=== PATIENT | female | born 1995 | race Two or more races ===

== ENCOUNTER 2018-08-06 20:04 | Inpatient (IN) | payer OTHER ==
[~2018-08-06] VITALS: Ht 157.5 cm; Wt 68.0 kg
[2018-08-06] MEDS ORDERED: PRENATAL TABLE1 EAC1 PO (20:26)
== END 2018-08-09 14:26 | DRG 775 ==
LOC: OB/GYN 20:04 → LDR 20:04 → OB/GYN 08-07 22:20
PROC: 4A1HXCZ Monitoring of Products of Conception, Cardiac Rate, External Approach (ICD-10-PCS; 2018-08-06)
PROC: 10E0XZZ Delivery of Products of Conception, External Approach (ICD-10-PCS; principal; 2018-08-07)
PROC: 0W8NXZZ Division of Female Perineum, External Approach (ICD-10-PCS; 2018-08-07)
PROC: 3E033VJ Introduction of Other Hormone into Peripheral Vein, Percutaneous Approach (ICD-10-PCS; 2018-08-07)
DX: O80 Encounter for full-term uncomplicated delivery (principal); Z3A.39 39 weeks gestation of pregnancy; Z37.0 Single live birth; Z22.330 Carrier of Group B streptococcus

== ENCOUNTER 2023-06-20 15:00 | Outpatient (CLI) | payer OTHER ==
[~2023-06-20 15:00] MED LIST: PRENATAL TABLE1 EAC1 PO
== END 2023-06-20 17:41 | disposition home or self-care (01) ==
LOC: PRENATAL 15:00
PROVIDERS: ATTEND Obstetrics & Gynecology Maternal & Fetal Medicine
DX: O35.9XX0 Maternal care for (suspected) fetal abnormality and damage, unspecified, not applicable or unspecified (principal); O35.3XX0 Maternal care for (suspected) damage to fetus from viral disease in mother, not applicable or unspecified; O44.00 Complete placenta previa NOS or without hemorrhage, unspecified trimester; Z3A.20 20 weeks gestation of pregnancy

== ENCOUNTER 2023-08-16 13:34 | Outpatient (CLI) | payer OTHER | END 2023-08-16 13:49 | disposition home or self-care (01) | LOC: PRENATAL 13:34 | PROVIDERS: ATTEND Obstetrics & Gynecology Maternal & Fetal Medicine | DX: O26.849 Uterine size-date discrepancy, unspecified trimester (principal); O44.00 Complete placenta previa NOS or without hemorrhage, unspecified trimester; O99.280 Endocrine, nutritional and metabolic diseases complicating pregnancy, unspecified trimester; Z3A.28 28 weeks gestation of pregnancy ==

== ENCOUNTER → 2023-09-26 14:24 | Outpatient (CLI) | payer OTHER | END | disposition home or self-care (01) | LOC: PRENATAL 14:24 | PROVIDERS: ATTEND Obstetrics & Gynecology Maternal & Fetal Medicine | DX: O26.849 Uterine size-date discrepancy, unspecified trimester (principal); O36.8199 Decreased fetal movements, unspecified trimester, other fetus; O99.280 Endocrine, nutritional and metabolic diseases complicating pregnancy, unspecified trimester; Z3A.34 34 weeks gestation of pregnancy ==

== ENCOUNTER 2023-10-15 22:22 | Outpatient (CLI) | payer OTHER ==
[2023-10-15] MEDS ORDERED: SYNTHROID75 MCG PO (22:51)
[2023-10-15 23:27] LABS: PH,URINE 6.5 (5.0-8.0); URINE APPEARANCE Cloudy; URINE BILIRRUBIN Negative (NEGATIVE); URINE BLOOD Negative; URINE COLOR Yellow; URINE GLUCOSE Negative (NEGATIVE); URINE LEUKOCYTE Trace; URINE NITRATE Negative; URINE PROTEIN Negative (NEGATIVE)
[2023-10-15 23:28] LABS: URINE BACTERIA 1208.2 uL (0.0-1933); URINE EPITHELIAL CELLS 180.4 uL (0.0-38.8); URINE RBC 3.7 uL (0.0-20.8); URINE WBC 59.6 uL (0.0-23.2)
[2023-10-15 23:35] LABS: HEMATOCRIT 27.4 % (36.0-45.00); HEMOGLOBIN 8.8 g/dL (12.0-15.00); MEAN CELL VOLUME 65.1 fL (80.00-100.00); MEAN CORPUSCULAR HEMOGLOBIN 20.8 pg (27.00-32.0); MEAN CORPUSCULAR HGB CONC 31.9 g/dl (32.0-36.0); PLATELET COUNT 146 K/uL (150-450); RED BLOOD COUNT 4.22 M/uL (4.00-6.00); RED CELL DISTRIBUTION WIDTH 18.6 % (11.5-14.5)
== END 2023-10-16 12:10 | disposition home or self-care (01) ==
LOC: OBS/DEL 22:22
PROVIDERS: ATTEND Obstetrics & Gynecology
DX: O26.893 Other specified pregnancy related conditions, third trimester (principal); R50.9 Fever, unspecified; R52 Pain, unspecified; Z3A.38 38 weeks gestation of pregnancy; Z20.822 Contact with and (suspected) exposure to COVID-19

== ENCOUNTER 2023-10-30 08:02 | Inpatient (IN) | payer OTHER ==
[~2023-10-30] VITALS: Ht 157.5 cm; Wt 71.7 kg
[~2023-10-30 08:02] MED LIST changes: +SYNTHROID75 MCG PO
[2023-10-30 08:52] LABS: HEMATOCRIT 29.3 % (36.0-45.00); HEMOGLOBIN 9.3 g/dL (12.0-15.00); MEAN CORPUSCULAR HEMOGLOBIN 20.6 pg (27.00-32.0); MEAN CORPUSCULAR HGB CONC 31.9 g/dl (32.0-36.0); PLATELET COUNT 169 K/uL (150-450); RED BLOOD COUNT 4.54 M/uL (4.00-6.00); RED CELL DISTRIBUTION WIDTH 19.6 % (11.5-14.5)
[2023-10-30 08:54] LABS: MEAN CELL VOLUME 64.5 fL (80.00-100.00)
[2023-10-30 08:58] LABS: URINE APPEARANCE Cloudy; URINE BILIRRUBIN Negative (NEGATIVE); URINE BLOOD Negative; URINE COLOR Yellow; URINE GLUCOSE Negative (NEGATIVE); URINE LEUKOCYTE Trace; URINE NITRATE Negative; URINE PROTEIN Negative (NEGATIVE)
[2023-10-30 09:02] LABS: URINE BACTERIA 1708.4 uL (0.0-1933); URINE EPITHELIAL CELLS 138.2 uL (0.0-38.8); URINE WBC 41.8 uL (0.0-23.2)
[2023-10-30 09:34] LABS: INR 0.97; PROTHROMBIN TIME 10.2 SECONDS (9.0-11.5)
[2023-10-30 10:05] LABS: ALT/SGPT 9 U/L (12-78); AST/SGOT 11 U/L (15-37)
[2023-10-31 00:19] LABS: HEMATOCRIT 27.5 % (36.0-45.00); MEAN CORPUSCULAR HGB CONC 31.8 g/dl (32.0-36.0); PLATELET COUNT 191 K/uL (150-450); RED BLOOD COUNT 4.24 M/uL (4.00-6.00)
[2023-10-31 00:24] LABS: MEAN CORPUSCULAR HEMOGLOBIN 20.7 pg (27.00-32.0)
[2023-10-31 00:25] LABS: HEMOGLOBIN 8.8 g/dL (12.0-15.00); MEAN CELL VOLUME 64.9 fL (80.00-100.00)
== END 2023-11-01 14:10 | disposition home or self-care (01) | DRG 788 ==
LOC: LDR 08:02 → OB/GYN 08:02
PROVIDERS: ADMIT Obstetrics & Gynecology; ATTEND Obstetrics & Gynecology
PROC: 10D00Z1 Extraction of Products of Conception, Low, Open Approach (ICD-10-PCS; principal; 2023-10-30)
PROC: 4A1HXCZ Monitoring of Products of Conception, Cardiac Rate, External Approach (ICD-10-PCS; 2023-10-30)
DX: O80 Encounter for full-term uncomplicated delivery (principal); Z3A.39 39 weeks gestation of pregnancy; Z37.0 Single live birth; Z20.822 Contact with and (suspected) exposure to COVID-19